=== PATIENT | female | born 1995 | race Caucasian/White ===

== ENCOUNTER 2022-05-05 17:02 | Emergency (ER) | payer MEDICAID ==
[~2022-05-05] VITALS: Ht 154.9 cm; Wt 54.4 kg
[2022-05-05 17:23] VITALS: BP 112/62
--- NOTE | 2022-05-05 20:52 | NUR ---
Patient discharged to home in stable condition. Written and verbal after care instructions given. Patient verbalizes understanding of instruction.
== END 2022-05-05 20:20 | disposition home or self-care (01) ==
LOC: ER 17:06
DX: S00.03XA Contusion of scalp, initial encounter (principal); W22.8XXA Striking against or struck by other objects, initial encounter; Y93.89 Activity, other specified; Y92.89 Other specified places as the place of occurrence of the external cause; Y99.8 Other external cause status